=== PATIENT | male | born 1995 | race Hispanic/Latino ===

== ENCOUNTER 2019-02-25 21:08 | Emergency (ER) | payer OTHER ==
[2019-02-25] MEDS ORDERED: IBUPROFEN 400 MG TABLET ONE (21:23)
[2019-02-25] MEDS ORDERED: IBUPROFEN 200 MG TAB ONE (21:23)
== END 2019-02-25 22:50 | disposition home or self-care (01) ==
LOC: EDH 21:08
DX: S60.222A Contusion of left hand, initial encounter (principal); S50.12XA Contusion of left forearm, initial encounter; W18.39XA Other fall on same level, initial encounter; Y93.89 Activity, other specified; Y92.89 Other specified places as the place of occurrence of the external cause; Y99.8 Other external cause status
CPT/HCPCS: 73130